=== PATIENT | male | born 1990 | race Two or more races ===

== ENCOUNTER 2020-05-17 19:09 | Emergency (ER) | payer OTHER ==
[~2020-05-17] VITALS: Ht 167.6 cm; Wt 83.1 kg
--- NOTE | 2020-05-17 19:15 | NUR ---
KNIT GOODS CUTTER HAND: EKG DONE IN TRIAGE.
--- NOTE | 2020-05-17 19:23 | NUR ---
PNEUMATIC SYSTEMS OPERATOR: PT TO ROOM FROM LOBBY AT THIS TIME, AMBULATORY WITH STEADY GAIT WITH PLACEMENT MANAGER
--- NOTE | 2020-05-17 19:50 | NUR ---
PT BIB VIA POV. PT STATES THAT HE HAS BEEN HAVING LEFT SIDED CHEST PAIN X 2 HOURS THAT HURTS WORSE WITH MOVEMENT AND INSPIRATION. PT DENIES ANY TRAUMA TO THE AREA. PT RESTING IN [facility], MONITORING IN PLACE, AT BEDSIDE, EKATERINA CERTIFIED PEER SPECIALIST AT BEDSIDE, OLU AT THIS TIME, PT STATES PAIN IS CURRENTLY 3/10, WCTM.
[2020-05-17 20:39] LABS: BASOPHILS % (AUTO) 1 % (0-1); EOSINOPHILS % (AUTO) 3 % (1-7); LYMPHOCYTES % (AUTO) 30 % (22-44); MEAN CORPUSCULAR HEMOGLOBIN 31.3 pg (27.5-34.5); MEAN CORPUSCULAR HGB CONC 34.6 g/dL (33.2-36.2); MEAN PLATELET VOLUME 7.5 fL (7.4-10.4); MONOCYTES % (AUTO) 9 % (2-9); NEUTROPHILS % (AUTO) 56 % (42-75); PLATELET COUNT 296 x10^3/uL (130-400); RED BLOOD COUNT 5.13 x10^6/uL (4.38-5.82); RED CELL DISTRIBUTION WIDTH 14.5 % (9.4-14.8)
[2020-05-17 20:43] LABS: MD NO
[2020-05-17 20:52] LABS: ALANINE AMINOTRANSFERASE 37 U/L (12-78); ALBUMIN 3.6 g/dL (3.4-5.0); ANION GAP 8 mmol/L (5-15); CALCIUM 8.4 mg/dL (8.5-10.1); CHLORIDE 108 mmol/L (98-107); CREATININE 1.07 mg/dL (0.7-1.3)
[2020-05-17 20:57] LABS: ALKALINE PHOSPHATASE 99 U/L (45-117); BILIRUBIN,TOTAL 0.3 mg/dL (0.2-1.0); TOTAL PROTEIN 7.1 g/dL (6.4-8.2); TROPONIN I < 0.015 ng/mL (0.000-0.045)
[2020-05-17 21:53] VITALS: BP 129/72
== END 2020-05-17 22:06 | disposition home or self-care (01) ==
LOC: ED 20:44
DX: R07.89 Other chest pain (principal); R94.31 Abnormal electrocardiogram [ECG] [EKG]
CPT/HCPCS: 36415; 71045; 80053; 84484; 85025; 93005; 99285